=== PATIENT | male | born 1975 | race Two or more races ===

== ENCOUNTER 2016-10-08 21:09 | Emergency (ER) | payer SELFPAY ==
[2016-10-08 21:16] VITALS: BP 139/95; PULSE 102; RESP 20; TEMP 97.9; O2SAT 100
== END 2016-10-08 21:12 | disposition left against medical advice (07) ==
LOC: C.ER 21:09
DX: Z00.8 Encounter for other general examination (principal); Z02.9 Encounter for administrative examinations, unspecified

== ENCOUNTER 2017-10-08 12:04 | Emergency (ER) | payer OTHER ==
[2017-10-08 12:19] VITALS: BP 134/94; PULSE 83; RESP 20; TEMP 97.7; O2SAT 98
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
== END 2017-10-08 14:29 | disposition home or self-care (01) ==
LOC: C.ER 12:04
DX: M79.641 Pain in right hand (principal)

== ENCOUNTER 2018-05-12 06:26 | Inpatient (IN) | payer MEDICAID, OTHER ==
[2018-05-12 06:43] VITALS: RESP 18
[2018-05-12] MEDS ORDERED: Sodium Chloride 0.9% 1,000 ML IV ONE (07:20)
--- NOTE | 2018-05-12 08:08 | C.PDOC ---
History Of Present Illness 42 y/o male presents to ED stating " I don not feel well". Patient admits to drinking ETOH last night and states he drinks ETOH daily. Patient denies fever, cough, nausea, vomiting, SI/HI or any other complaints at this time. Chief Complaint (Nursing): Substance Abuse History Per: Patient History/Exam Limitations: no limitations Onset/Duration Of Symptoms: Days Current Symptoms Are (Timing): Still Present Suicide/Self Injury Attempted (Context): None Modifying Factor(s): Alcohol Past Medical History Reviewed: Historical Data, Nursing Documentation, Vital Signs Vital Signs: Last Vital Signs Temp 98.2 F 05/12/18 06:32 Pulse 94 H 05/12/18 06:32 Resp 18 05/12/18 06:32 BP 116/80 05/12/18 06:32 Pulse Ox 100 05/12/18 06:32 - Medical History PMH: Diabetes Surgical History: No Surg Hx Family History: States: No Known Family Hx - Social History Hx Alcohol Use: Yes Hx Substance Use: No - Immunization History Hx Tetanus Toxoid Vaccination: Yes Hx Influenza Vaccination: No Hx Pneumococcal Vaccination: No Review Of Systems Constitutional: Negative for: Fever, Chills Respiratory: Negative for: Cough Gastrointestinal: Negative for: Nausea, Vomiting Skin: Negative for: Rash Psych: Positive for: Other (ETOH abuse). Negative for: Suicidal ideation, Wit hdrawal Physical Exam - Physical Exam Appears: Non-toxic, No Acute Distress Skin: Warm, Dry, No Rash Head: Atraumatic, Normacephalic Eye(s): bilateral: Normal Inspection Oral Mucosa: Moist Neck: Supple Cardiovascular: Rhythm Regular Respiratory: Normal Breath Sounds, No Rales, No Rhonchi, No Wheezing Gastrointestinal/Abdominal: Soft, No Tenderness, No Guarding, No Rebound Neurological/Psych: Oriented x3, Normal Speech, Normal Cognition Gait: Steady ED Course And Treatment - Laboratory Results Result Diagrams: 05/12/18 08:28 05/12/18 08:28 O2 Sat by Pulse Oximetry: 100 (RA) Pulse Ox Interpretation: Normal Progress Note: Patient medically cleared for "detox" Disposition - Disposition Disposition: HOSPITALIZED Disposition Time: 11:20 Condition: STABLE - Clinical Impression Clinical Impression: Alcohol dependence - Scribe Statement The provider has reviewed the documentation as recorded by the Scribkeila Escoto All medical record entries made by the Scribe were at my direction and personally dictated by me. I have reviewed the chart and agree that the record accurately reflects my personal performance of the history, physical exam, medical decision making, and the department course for this patient. I have also personally directed, reviewed, and agree with the discharge instructions and disposition.
[2018-05-12] MEDS ORDERED: Sodium Chloride 0.9% 1,000 ML ONE (08:13)
[2018-05-12 08:39] LABS: BASO # 0.1 K/uL (0.0-0.2); BASO % 2.9 % (0.0-2.0); EOS # 0.2 K/uL (0.0-0.7); EOS % 4.2 % (0.0-4.0); HEMOGLOBIN 12.8 g/dL (12.0-18.0); LYMPH # 1.6 K/uL (1.0-4.3); LYMPH % 42.7 % (20.0-40.0); MEAN CORPUSCULAR HEMOGLOBIN 32.6 pg (27.0-31.0); MEAN CORPUSCULAR HGB CONC 33.6 g/dL (33.0-37.0); MEAN PLATELET VOLUME 7.8 fL (7.2-11.7); MONO # 0.3 K/uL (0.0-0.8); MONO % 7.6 % (0.0-10.0); NEUT # 1.6 K/uL (1.8-7.0); NEUT % 42.6 % (50.0-75.0); NRBC % 0.1 % (0.0-2.0); RBC 3.94 Mil/uL (4.40-5.90); RED CELL DISTRIBUTION WIDTH 15.6 % (11.5-14.5); WHITE BLOOD COUNT 3.7 K/uL (4.8-10.8)
[2018-05-12 08:48] LABS: ALB/GLOB RATIO 1.2 (1.0-2.1); ALBUMIN 3.9 g/dL (3.5-5.0); ALT/SGPT 85 U/L (21-72); AST/SGOT 188 U/L (17-59); BLOOD UREA NITROGEN 4 mg/dL (9-20); CALCIUM 8.7 mg/dl (8.6-10.4); GFR NON-AFRICAN AMERICAN > 60
[2018-05-12 10:14] LABS: SQUAMOUS EPITHIAL < 1 /hpf (0-5); URINE BILIRUBIN NEGATIVE (NEGATIVE); URINE BLOOD NEGATIVE (NEGATIVE); URINE CLARITY Clear (Clear); URINE COLOR Yellow (YELLOW); URINE GLUCOSE (UA) 3+ mg/dL (Normal); URINE LEUKOCYTE ESTERASE NEG Leu/uL (Negative); URINE PROTEIN NEGATIVE (NEGATIVE); URINE UROBILINOGEN NORMAL mg/dL (0.2-1.0)
[2018-05-12 11:03] LABS: BARBITURATES, UR NEGATIVE (NEGATIVE); BENZODIAZEPINES, UR NEGATIVE (NEGATIVE); OPIATES, UR NEGATIVE (NEGATIVE); PHENCYCLIDINE, UR NEGATIVE (NEGATIVE)
[2018-05-12 11:22] VITALS: O2SAT 100
--- NOTE | 2018-05-12 12:40 | PCM.BM ---
Treatment assets and liabiliti Patient Assests: cooperative, motivated, ADL independent Patient Liabilities: poor support system, substance abuse - Milieu Protocol Maintain good personal hygiene: daily Encourage regular showers, daily Remind patient to perform daily oral care, daily Assist patient to perform ADL's Maintain personal safety: every shift Educate patient to report safety concerns to staff, every shift Monitor environment for contraband/sharps Medication safety: Monitor for expected outcome, potential side effects: every shift, Assess barriers to learning: every shift, Assess readiness for medication education: every shift
[2018-05-12 13:02] VITALS: BP 109/79; PULSE 84; TEMP 97.8
--- NOTE | 2018-05-12 13:12 | PCM.PSYCH ---
Initial Psychiatric Evaluation - Initial Psychiatric Evaluation Type of Admission: Voluntary Legal Status: Capacity History of Present Illness and Precipitating Events: Patient is a 42 year old Belgian [place] male that lives in [place] with his mother. The patient brought himself to [facility] ED requesting detox from alcohol. The patient states that his drinking became a problem two years ago when he started drinking excessively. He states that he started drinking at the age of 11. The patient reports that he drinks 5 shots a day but can drink an entire liter of alcohol in one day at the most. He states that he brought himself in because he just wants to stop now. The patient has never been to any detox program in the past or rehab. He states that he wants to move to [place] to be with his and three kids after being discharged from here . 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
--- NOTE | 2018-05-12 14:56 | PCM.PYCHDC ---
Mental Status Examination - Mental Status Examination Orientation: Person, Place, Situation, Time Memory: Intact Mood: Anxious Affect: Constricted Speech: Appropriate Attention: WNL Concentration: WNL Association: WNL Fund of Knowledge: WNL Formal Thought Process: No Impairment Suicidal Ideation: No Current Homicidal Ideation?: No Discharge Summary - Discharge Note Laboratory Data: Abnormal Lab Results 05/12/18 05/12/18 05/12/18 06:33 08:28 08:28 WBC 3.7 L RBC 3.94 L Hgb 12.8 Hct 38.2 MCV 97.0 H MCH 32.6 H MCHC 33.6 RDW 15.6 H Plt Count 170 MPV 7.8 Neut % (Auto) 42.6 L Lymph % (Auto) 42.7 H [place] % (Auto) 7.6 Eos % (Auto) 4.2 H Baso % (Auto) 2.9 H Neut # (Auto) 1.6 L Lymph # (Auto) 1.6 [place] # (Auto) 0.3 Eos # (Auto) 0.2 Baso # (Auto) 0.1 Sodium 148 Potassium 3.9 Chloride 109 H Carbon Dioxide 23 Anion Gap 19 BUN 4 L Creatinine 0.5 L Est GFR ( Amer) > 60 Est GFR (Non-Af Amer) > 60 POC Glucose (mg/dL) 228 H Random Glucose 228 H Calcium 8.7 Magnesium 1.8 Total Bilirubin 0.6 AST 188 H ALT 85 H Alkaline Phosphatase 116 Total Protein 7.1 Albumin 3.9 Globulin 3.3 Albumin/Globulin Ratio 1.2 Urine Color Urine Clarity Urine pH Ur Specific [place] Urine Protein Urine Glucose (UA) Urine Ketones Urine Blood Urine Nitrate Urine Bilirubin Urine Urobilinogen Ur Leukocyte Esterase Ur Squamous Epith Cells Urine Opiates Screen Urine Methadone Screen Ur Barbiturates Screen Ur Phencyclidine Scrn Ur Amphetamines Screen U Benzodiazepines Scrn U Oth Cocaine Metabols U Cannabinoids Screen Alcohol, Quantitative 323 H 05/12/18 05/12/18 09:59 09:59 WBC RBC Hgb Hct MCV MCH MCHC RDW Plt Count MPV Neut % (Auto) Lymph % (Auto) [place] % (Auto) Eos % (Auto) Baso % (Auto) Neut # (Auto) Lymph # (Auto) [place] # (Auto) Eos # (Auto) Baso # (Auto) Sodium Potassium Chloride Carbon Dioxide Anion Gap BUN Creatinine Est GFR ( Amer) Est GFR (Non-Af Amer) POC Glucose (mg/dL) Random Glucose Calcium Magnesium Total Bilirubin AST ALT Alkaline Phosphatase Total Protein Albumin Globulin Albumin/Globulin Ratio Urine Color Yellow Urine Clarity Clear Urine pH 5.0 Ur Specific [place] 1.008 Urine Protein Negative Urine Glucose (UA) 3+ H Urine Ketones Negative Urine Blood Negative Urine Nitrate Negative Urine Bilirubin Negative Urine Urobilinogen Normal Ur Leukocyte Esterase Neg Ur Squamous Epith Cells < 1 Urine Opiates Screen Negative Urine Methadone Screen Negative Ur Barbiturates Screen Negative Ur Phencyclidine Scrn Negative Ur Amphetamines Screen Negative U Benzodiazepines Scrn Negative U Oth Cocaine Metabols Negative U Cannabinoids Screen Negative Alcohol, Quantitative Consultations:: List each consultation separately and include: 1. Reason for request. 2. Findings. 3. Follow-up Summary of Hospital Course include:: 1. Description of specific treatment plan utilized for patients during their course of treatmen. 2. Summarize the time- course for resolution of acute symptoms and/or regressed behaviors. 3. Describe issues identified and worked on during hospitalization. 4. Describe medication utilized. 5. Describe medical problems identified and treated. 6. Reassessment of suicide risk Summary of Hospital Course: On Admission: Hospital course: The pt was admitted and started on treatment with psychotherapy, support, psychoeducation and medications. [place] and CBT used. The pt attended groups and activities, as well as milieu therapy. All the risks and benefits of medications are discussed and the patient understood and agreed. The pt improved with the treatments provided. After care discussed with the patient. Patient is a 42 year old Malaysian male that lives in [place] with his mother. The patient brought himself to [facility] ED requesting detox from alcohol. The patient states that his drinking became a problem two years ago when he started drinking excessively. He states that he started drinking at the age of 11. The patient reports that he drinks 5 shots a day but can drink an entire liter of alcohol in one day at the most. He states that he brought himself in because he just wants to stop now. The patient has never been to any detox program in the past or rehab. He states that he wants to move to [place] to be with his and three kids after being discharged from here. 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 Follow after care plan as discussed. Use relapse prevention skills Return to ER or call 911 if suicidal, homicidal or symptoms relapse. Stay away from stress, alcohol and drugs. See primary doctor regularly and get labs.
== END 2018-05-12 13:30 | disposition left against medical advice (07) | DRG 894 ==
LOC: C.ER 06:26 → C.7D 11:38
PROVIDERS: ADMIT Psychiatry & Neurology Psychiatry; ATTEND Psychiatry & Neurology Psychiatry
DX: F10.20 Alcohol dependence, uncomplicated (principal); E11.9 Type 2 diabetes mellitus without complications; Y90.8 Blood alcohol level of 240 mg/100 ml or more